=== PATIENT | female | born 1990 | race Asian ===

== ENCOUNTER 2019-02-18 10:06 | Emergency (ER) | payer MEDICAID ==
[2019-02-18] MEDS ORDERED: methylPREDNISolone Sodium Succinate 40 MG/1 ML SDV IVPUSH ONE (10:07)
[2019-02-18] MEDS ORDERED: diphenhydrAMINE 50 MG/ML SDV IVPUSH ONE (10:07)
--- NOTE | 2019-02-18 10:28 | EDM.PDOC ---
ED HPI GENERAL MEDICAL PROBLEM - General Chief Complaint: Allergic Reaction Stated Complaint: SENT FROM RADIOLOGY Time Seen by Provider: 02/18/19 10:23 History Limitations: Reports: No Limitations - History of Present Illness INITIAL COMMENTS - FREE TEXT/NARRATIVE: pt arrived from [facility] feeling itchy all over. She is sneezing and coughing and that happened right after she had the contrast for a cat scan. Onset: Today Duration: Hour(s): Location: Reports: Generalized Associated Symptoms: Reports: Other (pt is not feeling sob. ) - Related Data Allergies Allergy/AdvReac Type Severity Reaction Status Date / Time No Known Allergies Allergy Verified 02/18/19 09:40 Past Medical History HEENT History: Reports: Other (See Below) Other HEENT History: itchy UNDERGRADUATE ADVISOR History: Reports: Dermatologic History: Reports: Other (See Below) Other Dermatologic History: itchy prior ER in CT for CT of the abd after contrast C/O itching Social & Family History - Tobacco Use Smoking Status *Q: Current Every Day Smoker Years of Tobacco use: 10 Packs/Tins Daily: 0.7 - Caffeine Use Caffeine Use: Reports: Coffee - Recreational Drug Use Recreational Drug Use: No ED ROS ALLERGIC REACTION - Review of Systems Review Of Systems: See Below Constitutional: Reports: No Symptoms HEENT: Reports: Other ( pt is sneezing and is itching all over. She does not have hives. ) Respiratory: Reports: No Symptoms Cardiovascular: Reports: No Symptoms Endocrine: Reports: No Symptoms GI/Abdominal: Reports: No Symptoms : Reports: No Symptoms Musculoskeletal: Reports: No Symptoms ED EXAM GENERAL NO PERIP PULSE - Physical Exam Exam: See Below Text/Narrative:: pt arrived with feeling stuffed up . She is ithing all over. Exam Limited By: No Limitations General Appearance: Alert, No Apparent Distress Ears: Normal TMs Nose: Normal Inspection Throat/Mouth: Normal Inspection Head: Atraumatic Neck: Normal Inspection Respiratory/Chest: No Respiratory Distress Cardiovascular: Regular Rate, Rhythm GI/Abdominal: Soft, Non-Tender (Female) Exam: Deferred Rectal (Female) Exam: Deferred Course - Vital Signs Last Recorded V/S: Last Vital Signs Temp 36 C 02/18/19 10:11 Pulse 82 02/18/19 10:11 Resp 18 02/18/19 10:11 BP 117/70 02/18/19 10:11 Pulse Ox 96 02/18/19 10:11 - Orders/Labs/Meds Meds: Medications Discontinued Medications Generic Name Dose Route Start Last Admin Trade Name Melisa PRN Reason Stop Dose Admin Diphenhydramine HCl 25 mg 02/18/19 10:07 02/18/19 10:23 Benadryl IVPUSH 02/18/19 10:08 25 mg ONETIME ONE Administration Methylprednisolone Sodium Succinate 40 mg 02/18/19 10:07 02/18/19 10:23 Solu-Medrol IVPUSH 02/18/19 10:08 40 mg ONETIME ONE Administration - Re-Assessments/Exams Free Text/Narrative Re-Assessment/Exam: 02/18/19 10:29 pt was given benadryl and solumedrol iv. She did not have sig resp distress. 02/18/19 10:42 pt is doing better, the itxching has imoproved Departure - Departure Time of Disposition: 10:43 Disposition: Home, Self-Care 01 Condition: Fair Clinical Impression: Allergic reaction - Discharge Information Referrals: PCP,None [Primary Care Provider] - Forms: ED Department Discharge Care Plan Goals: rtc if increased problems. When pt gets home use benadryl 25 mg. In 4 hours repeat another benadry 25 mg.
== END 2019-02-18 10:58 | disposition home or self-care (01) ==
LOC: JP.ED 10:06
DX: R06.7 Sneezing (principal); R05 Cough; T50.8X5A Adverse effect of diagnostic agents, initial encounter; F17.210 Nicotine dependence, cigarettes, uncomplicated
CPT/HCPCS: 96374; 96375; 99283; J1200; J2920

== ENCOUNTER 2020-10-01 06:07 | Day surgery (SDC) | payer MEDICAID ==
[~2020-10-01 06:07] MED LIST: Sodium Chloride 0.9% 1,000 ML IV SCH; ceFAZolin 2 GM in Premix Bag 1 BAG IV ONE; metroNIDAZOLE/Normal Saline 500 MG in Premix Bag 1 BAG IV ONE
[2020-10-01] MEDS ORDERED: Bupivacaine 0.5% 50 ML MDV ONE (06:50)
[2020-10-01] MEDS ORDERED: Lidocaine 1% with EPINEPHrine 1:100,000 50 ML MDV ONE (06:50)
[2020-10-01] MEDS: Sodium Chloride 0.9% 1,000 ML IV SCH ×2 (07:18→11:47)
[2020-10-01] MEDS ORDERED: ceFAZolin 2 GM in Premix Bag 1 BAG IV ONE (08:00)
[2020-10-01] MEDS ORDERED: metroNIDAZOLE/Normal Saline 500 MG in Premix Bag 1 BAG IV ONE (08:00)
[2020-10-01] MEDS ORDERED: fentaNYL 100 MCG/2 ML SDV IVPUSH PRN (08:33)
[2020-10-01] MEDS ORDERED: Docusate Sodium 100 MG Cap PO PRN (08:33)
[2020-10-01] MEDS ORDERED: Acetaminophen/HYDROcodone 325-5 MG Tab PO PRN (08:33)
[2020-10-01] MEDS ORDERED: Zolpidem 5 MG Tab PO PRN (08:33)
[2020-10-01] MEDS ORDERED: Benzocaine/Cetylpyridinium/Menthol Lozenge MUCMEM PRN (08:33)
[2020-10-01] MEDS ORDERED: hydrOXYzine HCL 100 MG/2 ML SDV IM PRN (08:33)
[2020-10-01] MEDS ORDERED: Midazolam 1 MG/ML 2 ML SDV ONE (08:39)
[2020-10-01] MEDS ORDERED: Succinylcholine 200 MG/10 ML MDV ONE (08:39)
[2020-10-01] MEDS ORDERED: Ondansetron 4 MG/2 ML SDV ONE (08:39)
[2020-10-01] MEDS ORDERED: fentaNYL 250 MCG/5 ML SDV ONE (08:39)
[2020-10-01] MEDS ORDERED: Dexamethasone 4 MG/ML SDV ONE (08:39)
[2020-10-01] MEDS ORDERED: Rocuronium 50 MG/5 ML Vial ONE (08:39)
[2020-10-01] MEDS ORDERED: Glycopyrrolate 0.2 MG/ML 5 ML MDV ONE (08:39)
[2020-10-01] MEDS ORDERED: Propofol 200 MG/20 ML SDV ONE (08:39)
[2020-10-01] MEDS ORDERED: Neostigmine Methylsulfate 1 MG/ML 5 ML Syringe ONE (08:39)
[2020-10-01] MEDS ORDERED: hydrOXYzine HCL 100 MG/2 ML SDV IM ONE (09:54)
[2020-10-01] MEDS ORDERED: fentaNYL 100 MCG/2 ML SDV ONE (09:57)
[2020-10-01] MEDS ORDERED: Ondansetron 4 MG/2 ML SDV IVPUSH ONE (10:39)
[2020-10-01] MEDS ORDERED: lamoTRIgine 100 MG Tab PO ONE (12:00)
[2020-10-01] MEDS ORDERED: DULoxetine 30 MG Cap PO ONE (12:00)
--- NOTE | 2020-10-04 08:40 | OR ---
DATE OF PROCEDURE: 10/01/2020 SURGEON: Chris Padron MD PROCEDURE PERFORMED: Transversus abdominis plane block bilaterally. COMPLICATIONS: None. STOCK UNLOADER: None. RISKS: Risks, benefits, alternatives, and limitations including but not limited to infection, bleeding, and injury to abdominal structures were explained to the patient who wished to proceed. PROCEDURE IN DETAIL: Using a 13 megahertz ultrasound probe, the left transversus plane was identified first. This was then injected with approximately 70% of the solution under direct visual guidance. The right side was then performed in same manner, same fashion, same technique, and in the same sequence using the same equipment. The patient tolerated the procedure well. Chris Padron MD /[id number]
--- NOTE | 2020-10-04 12:16 | OR ---
DATE OF PROCEDURE: 10/01/2020 SURGEON: Chris Padron MD PROCEDURE PERFORMED: Laparoscopic cholecystectomy. PREOPERATIVE DIAGNOSES: 1. Cholelithiasis. 2. Cholecystitis. POSTOPERATIVE DIAGNOSES: 1. Cholelithiasis. 2. Cholecystitis. COMPLICATIONS: None. PUBLIC TRANSPORTATION INSPECTOR: None. ANESTHETIC: General. RISKS: Risks, benefits, alternatives, and limitations including, but not limited to infection, bleeding, and perforation were explained to the patient. We also discussed cystic duct leaks, common bile duct injuries, open surgery, seroma, hematoma, sepsis, and other risks not listed here. The patient understands these risks and wished to proceed. We also discussed the risk of enterotomy or other abdominal injury. PROCEDURE IN DETAIL: The patient was placed in supine position. A supraumbilical incision was made, and a Veress needle was used to enter the abdomen without abnormality. A drop test was performed without abnormality. An Optiview trocar was then inserted. No evidence of enterotomy or injury. An additional 10 and two 5 mm ports will be entered under direct visualization. The gallbladder was retracted cephalad and the infundibulum retracted inferolaterally. Using blunt dissection, a "clear view" of the gallbladder was obtained with a single pulsatile structure in the gallbladder and a single non-pulsatile structure in the gallbladder. These were subsequently clipped and then transected. The remaining 1/3rd of the gallbladder was removed off the gallbladder bed without difficulty. This was delivered through a superior port. The abdomen was re-insufflated. No evidence of bleeding was noted. The pressure was dropped to 6. No venous bleeding was noted. The abdomen was inspected for enterotomy injury. None was noted. 1 L of irrigation was used. The wounds were closed with 3-0 Vicryl, 4-0 Vicryl, and Dermabond after irrigation. The patient tolerated the procedure well. Chris Padron MD /[id number]
== END 2020-10-01 15:32 | disposition home or self-care (01) ==
LOC: JP.SDS 06:07
PROVIDERS: ATTEND Surgery
DX: K80.10 Calculus of gallbladder with chronic cholecystitis without obstruction (principal); F41.1 Generalized anxiety disorder; F33.0 Major depressive disorder, recurrent, mild; F17.210 Nicotine dependence, cigarettes, uncomplicated; Z98.890 Other specified postprocedural states; Z90.49 Acquired absence of other specified parts of digestive tract; Z79.899 Other long term (current) drug therapy; Z91.041 Radiographic dye allergy status
CPT/HCPCS: 47562; 88304; A9270; J0171; J0330; J0690; J1100; J1790; J2250; J2405; J2704; J2710; J2795; J3010; J3410; J3490; J7030

== ENCOUNTER 2021-04-22 17:41 | Emergency (ER) | payer MEDICAID ==
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
== END 2021-04-23 08:14 ==
LOC: JP.ED 17:41
DX: F41.9 Anxiety disorder, unspecified (principal); F33.2 Major depressive disorder, recurrent severe without psychotic features; X83.8XXA Intentional self-harm by other specified means, initial encounter; Z91.041 Radiographic dye allergy status
CPT/HCPCS: 36415; 80053; 80143; 80179; 80305-QW; 80307; 81001; 81025; 84443; 85025; 99284; 99285

== ENCOUNTER 2022-03-30 06:00 | Day surgery (SDC) | payer MEDICAID ==
[~2022-03-30 06:00] MED LIST changes: +Dextrose 5%-Lactated Ringers 1,000 ML IV SCH; -Sodium Chloride 0.9% 1,000 ML IV SCH; -ceFAZolin 2 GM in Premix Bag 1 BAG IV ONE; -metroNIDAZOLE/Normal Saline 500 MG in Premix Bag 1 BAG IV ONE
[2022-03-30] MEDS ORDERED: Propofol 200 MG/20 ML SDV ONE (06:57)
[2022-03-30] MEDS ORDERED: Midazolam 1 MG/ML 2 ML SDV ONE (06:57)
[2022-03-30] MEDS ORDERED: fentaNYL 100 MCG/2 ML SDV ONE (06:57)
[2022-03-30] MEDS ORDERED: Glycopyrrolate 0.2 MG/ML 2 ML SDV IVPUSH ONE (07:45)
== END 2022-03-30 09:22 | disposition home or self-care (01) ==
LOC: JP.SDS 06:00
PROVIDERS: ATTEND Surgery
DX: R19.7 Diarrhea, unspecified (principal); R63.8 Other symptoms and signs concerning food and fluid intake; R68.81 Early satiety; R10.13 Epigastric pain
CPT/HCPCS: 43239; 87081; 88305; J2250; J2704; J3010; J3490; J7121